=== PATIENT | male | born 1995 | race Caucasian/White ===

== ENCOUNTER → 2017-03-22 | Outpatient (CLI) | payer BC ==
[2017-03-22 12:25] LABS: PFT COL EPI 111 SECONDS (80-184)
[2017-03-28 14:34] LABS: RISTOCETIN COFACTOR** 4459X 118 % (42-200)
[2017-04-01 06:01] LABS: FACTOR VIII ACTIV**SEND TO GMC 134 % (55 - 145)
== END | disposition home or self-care (01) ==
LOC: C.LAB 11:38
PROVIDERS: ATTEND Internal Medicine Hematology
DX: R23.3 Spontaneous ecchymoses (principal)